=== PATIENT | male | born 1980 ===

== ENCOUNTER 2016-09-08 11:13 | Observation (INO) | payer OTHER ==
[2016-09-08 11:18] VITALS: BMI 26.3
[2016-09-08 11:19] VITALS: RESP 19
[2016-09-08] MEDS ORDERED: Sodium Chloride 0.9% 1,000 ML IV STA (11:40)
--- NOTE | 2016-09-08 11:45 | ED PDOC ---
HPI: Abdomen Time Seen by Provider: 09/08/16 11:27 Chief Complaint (Nursing): GI Problem Chief Complaint (Provider): vomiting History Per: Patient History/Exam Limitations: no limitations Onset/Duration Of Symptoms: Hrs (x 1) Outside of [place] travel?: No Current Symptoms Are (Timing): Intermittent Episodes Location Of Pain/Discomfort: Epigastric Associated Symptoms: Vomiting. denies: Fever, Chills, Nausea, Diarrhea, Loss Of Appetite, Back Pain, Chest Pain, Constipation, Urinary Symptoms Additional Complaint(s): Obdulio Acevedo is a 35 year old male, with no previous medical history, who presents to the ED with complaints of vomiting associated with abdominal pain dizziness and weakness ongoing for the past hour.Patient states his pain began while attempting to have a bowel movement. He denies any nausea, diarrhea, shortness of breath, urinary symptoms or surgeries. Patient reports similar symptoms intermittently ongoing. PMD: none provided Past Medical History Reviewed: Historical Data, Nursing Documentation, Vital Signs Vital Signs: Last Vital Signs Temp 98.5 F 09/08/16 11:18 Pulse 63 09/08/16 11:18 Resp 19 09/08/16 11:18 BP 136/99 H 09/08/16 11:18 Pulse Ox 100 09/08/16 13:55 - Medical History PMH: No Chronic Diseases - Surgical History Surgical History: No Surg Hx - Family History Family History: States: Unknown Family Hx - Social History Current smoker - smoking cessation education provided: Yes Alcohol: Social Drugs: Cannabis - Home Medications Home Medications: Ambulatory Orders Medication Instructions Recorded No Known Home Med 09/08/16 - Allergies Allergies/Adverse Reactions: Allergies Allergy/AdvReac Type Severity Reaction Status Date / Time shrimp Allergy ANAPHYLAXIS Verified 09/08/16 11:38 Review of Systems ROS Statement: Except As Marked, All Systems Reviewed And Found Negative Constitutional: Negative for: Fever, Chills Gastrointestinal: Positive for: Vomiting, Abdominal Pain. Negative for: Nausea , Diarrhea, Constipation, Melena, Hematochezia Genitourinary Male: Negative for: Dysuria, Frequency, Incontinence, Hematuria Physical Exam - Reviewed Nursing Documentation Reviewed: Yes Vital Signs Reviewed: Yes - Physical Exam Appears: Positive for: Well, Non-toxic, No Acute Distress Head Exam: Positive for: ATRAUMATIC, NORMAL INSPECTION, NORMOCEPHALIC Gastrointestinal/Abdominal: Positive for: Bowel Sounds, Soft, Tenderness ( epigastric, RUQ). Negative for: Distended, Guarding, Rebound Back: Positive for: Normal Inspection. Negative for: L CVA Tenderness, R CVA Tenderness Extremity: Positive for: Normal ROM Neurologic/Psych: Positive for: Alert, Oriented - Laboratory Results Result Diagrams: 09/08/16 11:51 09/08/16 11:51 - ECG O2 Sat by Pulse Oximetry: 100 (RA) Pulse Ox Interpretation: Normal Medical Decision Making Medical Decision Making: Initial Impression: Gastritis Initial Plan: * labs * lipase * urine dipstick * x-ray obstructive series * IV NS 1,000 ml at 1,00 ml/hr * Pepcid 20 mg IV * zofran 4 mg IV * reevaluation Scribe Attestation: Documented by Gloria Schneider, acting as a scribe for Sachi Hyde MD. Provider Scribe Attestation: All medical record entries made by the Scribe were at my direction and personally dictated by me. I have reviewed the chart and agree that the record accurately reflects my personal performance of the history, physical exam, medical decision making, and the department course for this patient. I have also personally directed, reviewed, and agree with the discharge instructions and disposition. Disposition - Clinical Impression Clinical Impression: Gastritis - Patient ED Disposition Is Patient to be Admitted: Transfer of Care - Disposition Disposition: Transfer of Care Disposition Time: 14:55 Condition: IMPROVED Patient Signed Over To: Vielka Marlow Present On Arrival: None
[2016-09-08 12:32] LABS: BASO % 0.4 % (0.0-2.0); EOS # 0.1 K/uL (0.0-0.7); EOS % 0.9 % (0.0-4.0); HEMATOCRIT 49.9 % (35.0-51.0); LYMPH # 2.3 K/uL (1.0-4.3); LYMPH % 23.3 % (20.0-40.0); MEAN CELL VOLUME 89.2 fl (80.0-94.0); MEAN CORPUSCULAR HEMOGLOBIN 30.9 pg (27.0-31.0); MEAN CORPUSCULAR HGB CONC 34.6 g/dL (33.0-37.0); MEAN PLATELET VOLUME 7.6 fl (7.2-11.7); MONO # 0.7 K/uL (0.0-0.8); MONO % 6.9 % (0.0-10.0); NEUT # 6.8 K/uL (1.8-7.0); NEUT % 68.5 % (50.0-75.0); NRBC % 0.2 % (0.0-0.0); RED CELL DISTRIBUTION WIDTH 12.5 % (11.5-14.5)
[2016-09-08 12:38] LABS: ALB/GLOB RATIO 1.8 (1.0-2.1); ALKALINE PHOSPHATASE 54 U/L (38-126); ALT/SGPT 64 U/L (21-72); AST/SGOT 39 U/L (17-59); BILIRUBIN,TOTAL 0.5 mg/dl (0.2-1.3); BLOOD UREA NITROGEN 16 mg/dl (9-20); CALCIUM 9.5 mg/dL (8.4-10.2); CARBON DIOXIDE 25 mmol/L (22-30); CHLORIDE 102 mmol/L (98-107); GFR AFRICAN-AMERICAN > 60; GLUCOSE,RANDOM 106 mg/dL (75-110); LIPASE 130 U/L (23-300); POTASSIUM 3.9 MMOL/L (3.6-5.0); SODIUM 142 mmol/l (132-148); TOTAL PROTEIN 7.6 G/DL (6.3-8.2)
[2016-09-08] MEDS ORDERED: Trimethobenzamide 200 mg/2 mL Inj IM ONE ×2 (13:20→13:21)
--- NOTE | 2016-09-08 15:25 | RAD ---
PROCEDURE: Radiographs of the chest and abdomen (obstructive series) send HISTORY: vomiting and abdominal pain COMPARISON: No prior. TECHNIQUE: AP radiograph of the chest, with upright and supine radiographs of the abdomen. FINDINGS: CHEST: Lungs: Clear. Cardiovascular: Normal size heart. No pulmonary vascular congestion. Pleura: No pleural fluid. No pneumothorax. Other findings: None. ABDOMEN AND PELVIS: Bowel: Unremarkable bowel gas pattern. No evidence of mechanical obstruction. Free air: None. Bones: Unremarkable. Other findings: None. IMPRESSION: Unremarkable radiographs of chest and abdomen. No evidence of mechanical bowel obstruction.
--- NOTE | 2016-09-08 15:37 | ED PDOC ---
- Laboratory Results Result Diagrams: 09/08/16 11:51 09/08/16 11:51 - ECG O2 Sat by Pulse Oximetry: 100 (RA) Pulse Ox Interpretation: Normal Medical Decision Making Medical Decision Makin:00 Patient signed out to me by Sachi Hyde MD pending x-ray, reassessment and final disposition. Accession No. : [id number] Patient Name / ID : RUDDY CEJA / [id number] Exam Date : 09/08/2016 14:53:09 ( Approved ) Study Comment : Sex / Age : M / 35Y Creator : Jean Claude Vazquez MD Dictator : Jean Claude Vazquez MD Pot Reliner : [employer] Sales Consultant : Jean Claude Vazquez MD Approver2 : Report Date : 09/08/2016 15:24:00 My Comment : PROCEDURE: Radiographs of the chest and abdomen (obstructive series) send HISTORY: vomiting and abdominal pain COMPARISON: No prior. TECHNIQUE: AP radiograph of the chest, with upright and supine radiographs of the abdomen. FINDINGS: CHEST: Lungs: Clear. Cardiovascular: Normal size heart. No pulmonary vascular congestion. Pleura: No pleural fluid. No pneumothorax. Other findings: None. ABDOMEN AND PELVIS: Bowel: Unremarkable bowel gas pattern. No evidence of mechanical obstruction. Free air: None. Bones: Unremarkable. Other findings: None. IMPRESSION: Unremarkable radiographs of chest and abdomen. No evidence of mechanical bowel obstruction. Labs unremarkable. 345p Pt with no vomiting. PO challenge clears. 430P Pt reports still feeling dehydrated and nauseous again. Reviewed findings with patient. Ketones in Udip and pt has not had any caloric intake since last night (He had vomited breakfast.) IVF D5LR ordered. IV Promethazine and Benadryl also ordered. 7p Pt feels better. Stable for DC. Scribe Attestation: Documented by Gloria Schneider, acting as a scribe for Vielka Marlow MD. Provider Scribe Attestation: All medical record entries made by the Scribe were at my direction and personally dictated by me. I have reviewed the chart and agree that the record accurately reflects my personal performance of the history, physical exam, medical decision making, and the department course for this patient. I have also personally directed, reviewed, and agree with the discharge instructions and disposition. Disposition - Clinical Impression Clinical Impression: Gastritis - POA Present On Arrival: None - Disposition Disposition: Routine/Home Disposition Time: 15:00 Condition: IMPROVED
[2016-09-08] MEDS ORDERED: Dextrose 5%/Lactated Ringer's 1,000 ML IV SCH (16:30)
[2016-09-08] MEDS ORDERED: DiphenhydrAMINE 50 mg/ml Inj IVP STA (16:58)
[2016-09-08] MEDS ORDERED: DiphenhydrAMINE 50 mg/ml Inj ONE (17:05)
[2016-09-08 19:39] VITALS: BP 123/76; PULSE 89; TEMP 98.2
[2016-09-10 17:53] VITALS: O2SAT 100
== END 2016-09-08 19:39 | disposition home or self-care (01) ==
LOC: H.ER 11:13 → H.EROBSV 15:00
PROVIDERS: ADMIT Emergency Medicine; ATTEND Emergency Medicine
DX: K29.70 Gastritis, unspecified, without bleeding (principal); F17.200 Nicotine dependence, unspecified, uncomplicated; E86.0 Dehydration